=== PATIENT | male | born 1995 | race Caucasian/White ===

== ENCOUNTER 2020-02-22 13:32 | Emergency (ER) | payer OTHER, SELFPAY ==
--- NOTE | ~2020-02-22 | XR_ITS ---
EXAMINATION: XR knee RT min 4V DATE: 02/22/2020 13:53 INDICATION: Right knee laceration. TECHNIQUE: 5 views of right knee were obtained. COMPARISON: None. FINDINGS: Bone alignment is normal. No fracture. There is mild osteoarthritis of lateral and patellof emoral compartments characterized by tiny marginal osteophytes. No knee joint effusion. There is a pr epatellar laceration. IMPRESSION: 1. Mild right knee osteoarthritis. 2. Prepatellar laceration. Reviewed, dictated and finalized at location A. [facility]
--- NOTE | 2020-02-22 13:42 | ED.WOUNDLAC ---
HPI - Wound/Laceration General Chief Complaint: Wound/Laceration Stated Complaint: laceration R/knee Source: patient and RN notes reviewed Limitations: no limitations History of Present Illness HPI narrative: The patient, previously mostly healthy, presents with knee laceration. 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 He sustained a transverse, 1 to 2in superficial laceration at the level of his kneecap. He complains of mild pain and bleeding is worse with motion, better at rest or compression- but is able to walk and bear weight fully. His immunizations are UTD, as he was recently in the [employer]. Discussed plan to provide staple approximation , which patient accepts Related Data Allergies Allergy/AdvReac Type Severity Reaction Status Date / Time No Known Allergies Allergy Verified 02/22/20 13:33 Review of Systems Review of Systems: Narrative: General/Constitutional: No weight loss,fever Eyes: N0: Redness,discharge Ears/Nose/Throat: No: Epistaxis,ear discharge Respiratory: Denies: Hemoptysis Gastrointestinal: No Vomiting, Bleeding-rectal Skin: No Lumps, eruption Neurologic: No Focal Weakness,Sz Hematologic: Denies: Petechiae/Purpura Psychiatric: No: Suicida ideationl All Other Systems: Reviewed and Negative [facility] [place] Social History Social History Gender identity (if verbalized by the patient): Male Comments At time of signature, agree with nursing past medical, surgical, social and family history. There is no relevant family history pertinent to the presenting complaint Exam Narrative: Exam Narrative: General Appearance: Well appearing, , Conjunctiva clear Mouth/Throat: Normal appearing, Normal lips, Supple Respiratory: Airway patent, No respiratory distress MS-knee: Normal strength (mostly intact, limited flexion/extension by pain), Tenderness-anteriorly, with mild decreased ROM), , Other -no anterior drawer, no collateral laxity, Skin: Warm, Dry, Normal color 4centimeter, superficial dermal, transverse laceration of the middle, anterior kneecap without bony or bursa involvement Neurological: A&O x3, , Normal affect Course Vital Signs Vital signs: Vital Signs Temperature 98.9 F 02/22/20 13:58 Pulse Rate 82 02/22/20 13:58 Respiratory Rate 18 02/22/20 13:58 Blood Pressure 119/77 02/22/20 13:58 Pulse Oximetry 98 02/22/20 13:58 Temperature 98.9 F 02/22/20 13:58 Pulse Rate 82 02/22/20 13:58 Respiratory Rate 18 02/22/20 13:58 Blood Pressure 119/77 02/22/20 13:58 Pulse Oximetry 98 02/22/20 13:58 Procedures Laceration Laceration 1: Site: lower extremity Side (If applicable): right Size (cm): 4 Description: linear Depth: simple, single layer Local Anesthetic: other anesthetic (LET gel) Amount of anesthesia used (mL): 2 ====== Skin Level ====== Skin layer closed with: stacy Number of sutures: 7 ====== Subcutaneous Layer ====== ====== Muscle Layer ====== ====== Tendon Layer ====== Discharge Plan Discharge Clinical Impression: Knee laceration Qualifiers: Encounter type: initial encounter Laterality: right Qualified Code(s): S81.011A - Laceration without foreign body, right knee, initial encounter Patient Disposition: Home, Self-Care Condition: Stable Instructions: Antibiotic Form, Laceration (ED) Additional Instructions: Remove 7 stacy in about a week and 1/2 no earlier than Feb Steri-Strip/butterfly bandage when stacy are removed Prescriptions: New mupirocin 2 % ointment 1 applic TOPICAL TID Qty: 30 RF: 0 cephalexin [Keflex] 500 mg capsule 500 mg PO Q8H Qty: 20 RF: 0 tramadol 50 mg tablet 50 mg PO Q6H PRN (Reason: pain) Qty: 15 RF: 1 Follow-up/Referrals: UNKNOWN,DOCTOR [Primary Care Provider] - Stand Alone Forms: Work/School Release IP
[2020-02-22] MEDS: LIDOCAINE, EPINEPHRINE, TETRACAINE VISCOUS SOLN 3 ML TOPICAL (13:46)
[2020-02-22 13:58] VITALS: BP 119/77; PULSE 82; RESP 18; TEMP 37.2; O2SAT 98
== END 2020-02-22 14:36 | disposition home or self-care (01) ==
PROVIDERS: Emergency Provider Emergency Medicine
DX: S81.011A Laceration without foreign body, right knee, initial encounter (principal); W29.3XXA Contact with powered garden and outdoor hand tools and machinery, initial encounter; Y99.0 Civilian activity done for income or pay
CPT/HCPCS: 12002; 73564; 99213; G0463

== ENCOUNTER 2020-03-03 15:34 | Emergency (ER) | payer OTHER, SELFPAY ==
[2020-03-03 15:45] VITALS: BP 129/77; PULSE 68; RESP 20; TEMP 36.9; O2SAT 98
--- NOTE | 2020-03-03 16:06 | ED.WOUNDLAC ---
HPI - Wound/Laceration General Chief Complaint: Wound/Laceration Stated Complaint: remove stacy Source: patient and RN notes reviewed Limitations: no limitations History of Present Illness HPI narrative: The patient, previously mostly healthy, presents with suture/staple removal. Patient states he was seen about 10 days ago for leg laceration at the level of the kneecap. He got 7 stacy, for the transverse laceration caused by a chainsaw and has been doing well including work, occasional jogging. No fever, discharge, dehiscence; discussed plan to remove half of stacy- and leave the remaining for duration of a full 2 weeks. Related Data Home Medications Medication Instructions Recorded Confirmed No Home Medications 03/03/20 03/03/20 Allergies Allergy/AdvReac Type Severity Reaction Status Date / Time No Known Allergies Allergy Verified 03/03/20 15:48 Review of Systems Review of Systems: Narrative: General/Constitutional: No weight loss,fever Respiratory: Denies: Hemoptysis Skin: No Lumps, eruption Neurologic: No Focal Weakness,Sz Hematologic: Denies: Petechiae/Purpura All Other Systems: Reviewed and Negative [facility] Social History Social History Gender identity (if verbalized by the patient): Male Comments At time of signature, agree with nursing past medical, surgical, social and family history. There is no relevant family history pertinent to the presenting complaint Exam Narrative: Exam Narrative: General Appearance: Well appearing, Conjunctiva nl Ears: External ear normal, Auditory canal normal Neck: Supple, No adenopathy Respiratory: Airway patent, No respiratory distress Skin: Well-healing and approximated knee laceration ;warm, Dry MS: Full strength and range of motion, inc knee Neurological: A&O x3, , Normal affect Course Vital Signs Vital signs: Vital Signs Temperature 98.5 F 03/03/20 15:45 Pulse Rate 68 03/03/20 15:45 Respiratory Rate 03/03/20 15:45 Blood Pressure 129/77 03/03/20 15:45 Pulse Oximetry 98 03/03/20 15:45 Temperature 98.5 F 03/03/20 15:45 Pulse Rate 68 03/03/20 15:45 Respiratory Rate 20 03/03/20 15:45 Blood Pressure 129/77 03/03/20 15:45 Pulse Oximetry 98 03/03/20 15:45 Discharge Plan Discharge Clinical Impression: Visit for suture removal Patient Disposition: Home, Self-Care Condition: Improved Additional Instructions: Remove remaining stacy in about a week Prescriptions: No Action No Home Medications RF: 0 Follow-up/Referrals: UNKNOWN,DOCTOR [Primary Care Provider] -
== END 2020-03-03 16:16 | disposition home or self-care (01) ==
PROVIDERS: Emergency Provider Emergency Medicine
DX: S81.011D Laceration without foreign body, right knee, subsequent encounter (principal); W29.3XXD Contact with powered garden and outdoor hand tools and machinery, subsequent encounter
CPT/HCPCS: 99211; G0463

== ENCOUNTER 2020-11-17 13:08 | Outpatient (CLI) | payer BC, SELFPAY ==
--- NOTE | 2020-11-17 | ECHO_ITS ---
Patient Info Name: Gael Hagan Age: 24 years : 1995 Gender: Male Ht: 70 in Wt: 220 lbs BSA: 2.25 m2 HR: 68 bpm BP: 135 / 71 mmHg Technical Quality: Good Exam Date: 11/17/2020 1:39 PM Exam Location: [facility] Patient Status: Outpatient Admit Date: 11/17/2020 Staff Ordering Physician: BravoMelisa NP Business Center Attendant: Luisa Ledezma RDCS Attending Provider: RudolphMelisa NP Exam Type: CA echo doppler color flow Study Info Indications - bradycardia Complete two-dimensional, color flow and Doppler transthoracic echocardiogram is performed. Summary 1. Complete two-dimensional, color flow and Doppler transthoracic echocardiogram is performed. 2. Left ventricular chamber dimension is normal. 3. Left ventricular systolic function is normal, estimated at 65-70%. 4. The left ventricular diastolic function is normal. 5. No pulmonary hypertension, estimated pulmonary arterial systolic pressure is 23 mmHg. 6. There is trace pulmonic regurgitation. Left Ventricle Tissue doppler E/e' is not calculated. Left ventricular chamber dimension is normal. Left ventricular systolic function is normal, estimated at 65-70%. The left ventricular diastolic function is normal. Right Ventricle Right ventricular chamber dimension is normal. Right ventricular systolic function is normal. Left Atria Left atrial chamber dimension is normal. Right Atria Right atrial chamber dimension is normal. Aortic Valve The aortic valve is trileaflet. There is no aortic valve stenosis. There is no aortic valve regurgitation. Pulmonic Valve There is trace pulmonic regurgitation. Mitral Valve There is no mitral valve stenosis. There is no mitral valve regurgitation. Tricuspid Valve There is no tricuspid valve regurgitation. No pulmonary hypertension, estimated pulmonary arterial systolic pressure is 23 mmHg. Pericardium/Pleural There is no pericardial effusion. Inferior Vena Cava Normal inferior vena cava with >50% collapse upon inspiration consistent with normal right atrial pressure, 5 mmHg. Aorta The aortic root size at the sinus of Valsalva is normal. Left Ventricular Outflow Tract Name Value Normal LVOT 2D LVOT Diameter 2.1 cm LVOT Doppler LVOT Peak Gradient 5 mmHg LVOT Mean Gradient 3 mmHg LVOT VTI 25 cm LVOT VTI/AV VTI Ratio 0.9 LVOT Stroke Volume 84 ml LVOT CO 16.9 l/min LVOT CI 7.5 l/min/m2 Pulmonic Valve Name Value Normal PV Doppler PV Peak Gradient 5 mmHg Mitral Valve Name Value
== END 2020-11-17 13:09 | disposition home or self-care (01) ==
PROVIDERS: PCP Nurse Practitioner Adult Health; Visit Provider Nurse Practitioner Adult Health
DX: R00.1 Bradycardia, unspecified (principal)
CPT/HCPCS: 93306